=== PATIENT | female | born 2000 | race Caucasian/White ===

== ENCOUNTER 2024-01-09 06:00 | Inpatient (IN) | payer OTHER ==
[2024-01-09] MEDS ORDERED: OXYTOCIN 10 UNIT/ML 1 ML VIAL IM PRN (06:16)
[2024-01-09] MEDS ORDERED: CARBOPROST TROMETHAMINE 250 MCG/ML 1 ML AMP IM PRN (06:16)
[2024-01-09] MEDS ORDERED: TERBUTALINE 1 MG/ML VIAL SQ PRN (06:16)
[2024-01-09] MEDS ORDERED: miSOPROStoL 200 MCG TAB PO PRN (06:16)
[2024-01-09] MEDS ORDERED: LIDOCAINE 0.5% (PF) 5 MG/ML (50 ML SDV) SQ PRN (06:16)
[2024-01-09] MEDS ORDERED: miSOPROStoL 200 MCG TAB RECTAL PRN (06:16)
[2024-01-09] MEDS ORDERED: TRANEXAMIC 1,000 MG/100ML-NACL 1,000 MG in EMPTY BAG 1 BAG IV PRN (06:16)
[2024-01-09] MEDS ORDERED: METHYLERGONOVINE 0.2 MG/ML 1 ML AMP IM PRN (06:16)
[2024-01-09] MEDS: LACTATED RINGERS 1,000 ML IV SCH (06:26)
[2024-01-09] MEDS: OXYTOCIN 30 UNITS/500 ML NS 30 UNIT in SALINE 1 500ML.BAG IV SCH (06:29)
[2024-01-09] MEDS ORDERED: OXYTOCIN 30 UNITS/500 ML NS 30 UNIT in SALINE 1 500ML.BAG IV SCH (06:30)
[2024-01-09 06:43] LABS: Basophils % (A) 0 %; Eosinophils # (A) 0.2 k/uL (0-0.7); Eosinophils % (A) 1 %; HCT 37.6 % (34.0-46.0); HGB 12.3 gm/dL (11.4-16.0); Lymphocytes # (A) 2.5 k/uL (1.0-4.8); Lymphocytes % (A) 22 %; MCH 29.4 pg (25.0-35.0); MCHC 32.7 g/dL (31.0-37.0); MCV 90.2 fL (80.0-100.0); Mean Platelet Volume 8.6; Monocytes # (A) 0.8 k/uL (0-1.0); Monocytes % (A) 7 %; Neutrophils # (A) 7.5 k/uL (1.3-7.7); Neutrophils % (A) 66 %; Platelet Count 287 k/uL (150-450); RBC 4.17 m/uL (3.80-5.40); RDW 14.3 % (11.5-15.5); WBC 11.4 k/uL (3.8-10.6)
--- NOTE | 2024-01-09 08:41 | P.HPOB ---
History of Present Illness H&P Date: 01/09/24 Chief Complaint: 40-6/7 weeks, induction The patient is a 23-year-old 1 para 0 admitted at 40-6/7 weeks as established by 6-week ultrasound. She is admitted for postdates induction of labor with all signs reassuring, category 1 heart rate tracing. Her has been entirely uncomplicated and group B strep status is negative. Obstetrical history: 1 para 0 with current statistics listed in history of present illness. EDC of 01/03/2024 was established by 6-week ultrasound. Laboratory workup demonstrates a blood type of A+ with a negative antibody screen. Rubella status is immune. The remainder of the laboratory workup is within normal limits. 1 hour Glucola was normal and group B strep status is negative. [employer] history: Unremarkable with no history of any infections to include STDs. Review of Systems Review of systems is confined to history of present illness. Past Medical History Past Medical History: No Reported History History of Any Multi-Drug Resistant Organisms: None Reported Past Surgical History: Adenoidectomy, Tonsillectomy Past Anesthesia/Blood Transfusion Reactions: No Reported Reaction Past Psychological History: Anxiety Additional Psychological History / Comment(s): not currently medicated Smoking Status: Never smoker Past Alcohol Use History: None Reported Past Drug Use History: None Reported - Past Family History Mother Family Medical History: Thyroid Disorder Additional Family Medical History / Comment(s): congenital "holes in heart" with mesh repair Medications and Allergies Home Medications Medication Instructions Recorded Confirmed Type Loratadine [Claritin] 10 mg PO DAILY 01/09/24 01/09/24 History Vit No.179/Iron/Folic 1 each PO DAILY 01/09/24 01/09/24 History [ Tablet] Allergies Allergy/AdvReac Type Severity Reaction Status Date / Time human papillomavirus Allergy Intermediate Rash/Hives Verified 01/09/24 06:16 vaccine, quadr Exam Vital Signs Temp Pulse Resp BP Pulse Ox 01/09/24 06:18 97.3 F L 100 18 135/93 99 Intake and Output 01/08/24 01/09/24 01/09/24 22:59 06:59 14:59 Other: Weight 78.471 kg In general, this is a well-developed, well-nourished white female in no acute distress. Her heart has a regular rhythm and rate without murmur. Her lungs are clear to auscultation bilateral in all sánchez. Her abdomen is gravid, nondistended, has normal active bowel sounds, soft, nontender, and without any palpable masses aside from the uterine fundus. Her extremities are without any cyanosis, clubbing, or edema and are nontender to palpation bilaterally. Digital cervical examination demonstrates her cervix to be 2 cm dilated, 50% effaced, with the vertex and presentation at -2 station. Artificial rupture of membranes is carried out demonstrating clear fluid. Results Result Diagrams: 01/09/24 06:30 Abnormal Lab Results - Last 24 Hours (Table) 01/09/24 Range/Units 06:30 WBC 11.4 H (3.8-10.6) k/uL Assessment and Plan (1) Post-dates Current Visit: Yes Status: Acute Code(s): O48.0 - POST-TERM SNOMED Code(s): 82739440 Plan: The patient is admitted for postdates induction of labor. Pitocin has been started and she has undergone artificial rupture of membranes. She will have close maternal and surveillance and expectant management will be practiced. She is a good candidate for either IV or epidural analgesia, whichev er she may choose.
[2024-01-09] MEDS ORDERED: NALBUPHINE 10 MG/ML (10 ML MDV) IV PRN (08:42)
[2024-01-09] MEDS ORDERED: SODIUM CHLORIDE 0.9% 250 ML BAG ONE (13:21)
[2024-01-09] MEDS ORDERED: ROPIVACAINE 5 MG/ML 30 ML VIAL ONE (13:21)
[2024-01-09] MEDS ORDERED: fentaNYL (PF) 50 MCG/ML 5 ML AMP ONE (13:21)
[2024-01-09] MEDS ORDERED: ZOLPIDEM 5 MG TAB PO PRN (21:44)
[2024-01-09] MEDS ORDERED: SIMETHICONE 80 MG CHEWABLE PO PRN (21:44)
[2024-01-09] MEDS ORDERED: diphenhydrAMINE 25 MG CAP PO PRN (21:44)
[2024-01-09] MEDS ORDERED: diphenhydrAMINE 50 MG/ML 1 ML VIAL IVP PRN ×2 (21:44)
[2024-01-09] MEDS ORDERED: BENZOCAINE/MENTHOL SPRAY 1 GM/SPRAY AEROSOL TOPICAL PRN (21:44)
[2024-01-09] MEDS ORDERED: HYDROCORTISONE 2.5% RECTAL CREAM 30 GM TUBE RECTAL PRN (21:44)
[2024-01-09] MEDS ORDERED: diphenhydrAMINE 50 MG CAP PO PRN (21:44)
[2024-01-09] MEDS ORDERED: LANOLIN CREAM 1 GM TUBE TOPICAL PRN (21:44)
--- NOTE | 2024-01-09 21:49 | P.PROBDLV ---
Vaginal Delivery Note - . Vaginal Delivery Note: The patient is a 23-year-old 1 para 0 admitted at 40-6/7 weeks by good dating parameters. She is admitted for postdates induction of labor with all signs reassuring, category 1 heart rate tracing. Her has been entirely uncomplicated and group B strep status is negative. On labor and delivery, she had Pitocin augmentation started and underwent artificial rupture of membranes with minimal fluid returned what was returned appeared to be clear. She made fairly slow progress through the latent phase of labor and had an epidural catheter placed around 4 cm of dilation. She then began to make fairly steady progress through the active phase of labor and ultimately progressed to complete and 0 station. She pushed over the course of approximately 50 minutes to a normal spontaneous vaginal delivery of a viable 6 pound 5 ounce baby girl with Apgars of 3 at 1 minute, 5 at 5 minutes, and 7 at 10 minutes. There was a moderate to significant amount of thick meconium stained fluid behind the baby and there was a nuchal cord x 1 which was reduced after delivery of the . Thorough suction of the oropharynx and nose was carried out on the perineum prior to delivery and after delivery and well prior to the infant taking his first deep breath. The placenta delivered spontaneously, intact, and was grossly normal though significantly meconium stained. There was a grossly normal, centrally inserted three-vessel cord. There were no lacerations of the perineum, vagina, or cervix. All sponge, instrument, and needle counts were correct. Estimated blood loss was approximately 100 mL. Both mother and are resting comfortably though the has been taken to the special care nursery for poor respiratory effort and is shortly to be placed on high flow oxygen supplementation.
[2024-01-09 23:19] VITALS: RESP 16
[2024-01-10 06:34] LABS: Basophils % (A) 0 %; Eosinophils # (A) 0.1 k/uL (0-0.7); Eosinophils % (A) 0 %; HCT 34.4 % (34.0-46.0); HGB 10.9 gm/dL (11.4-16.0); Hypochromasia Slight; Lymphocytes # (A) 1.9 k/uL (1.0-4.8); Lymphocytes % (A) 11 %; MCH 28.9 pg (25.0-35.0); MCHC 31.7 g/dL (31.0-37.0); MCV 91.1 fL (80.0-100.0); Mean Platelet Volume 8.6; Monocytes # (A) 0.9 k/uL (0-1.0); Monocytes % (A) 5 %; Neutrophils # (A) 13.4 k/uL (1.3-7.7); Neutrophils % (A) 80 %; Platelet Count 253 k/uL (150-450); RBC 3.78 m/uL (3.80-5.40); RDW 14.6 % (11.5-15.5); WBC 16.7 k/uL (3.8-10.6)
--- NOTE | 2024-01-10 08:44 | P.PNOBGVD ---
Subjective - Subjective Patient reports: Reports appetite normal, Reports voiding normally, Reports pain well controlled, Reports ambulating normally : doing well, in NICU (On high flow oxygen.) Objective - Latest Vital Signs Latest vital signs: Vital Signs Temp Pulse Resp BP 01/10/24 08:00 98.1 F 88 16 115/76 01/10/24 04:00 98.0 F 93 16 112/70 01/10/24 00:49 98.3 F 91 16 130/88 01/09/24 23:40 86 16 132/78 01/09/24 23:25 91 16 127/78 01/09/24 23:10 90 16 142/78 01/09/24 22:55 74 16 139/77 01/09/24 22:40 77 16 127/71 01/09/24 22:25 82 16 137/69 01/09/24 22:10 100 16 138/63 01/09/24 21:55 101 H 16 141/82 01/09/24 21:40 98.0 F 105 H 16 142/80 Intake and Output 01/09/24 01/10/24 01/10/24 22:59 06:59 14:59 Output Total 100 83 Balance -100 -83 Output: Output, Quantitative 100 83 Blood Loss Other: # Voids 1 1 - Exam Extremities: Present: normal Abdomen: Present: normal appearance, soft Uterus: Present: normal, firm (Uterine fundus is tonic and nontender below the umbilicus.) - Labs Labs: Abnormal Lab Results - Last 24 Hours (Table) 01/10/24 Range/Units 06:30 WBC 16.7 H (3.8-10.6) k/uL RBC 3.78 L (3.80-5.40) m/uL Hgb 10.9 L (11.4-16.0) gm/dL Neutrophils # 13.4 H (1.3-7.7) k/uL Assessment and Plan (1) Post-dates Current Visit: Yes Status: Acute Code(s): O48.0 - POST-TERM SNOMED Code(s): 73053059 (2) Normal spontaneous vaginal delivery Current Visit: Yes Status: Acute Code(s): O80 - ENCOUNTER FOR FULL-TERM UNCOMPLICATED DELIVERY SNOMED Code(s): 74402011 Plan: Continue routine care. I would anticipate discharge home tomorrow pending no complications. I have encouraged the patient to continue to ambulate in the hallways.
[2024-01-10] MEDS: ACETAMINOPHEN TAB 500 MG TAB PO PRN (09:18)
[2024-01-10] MEDS: IBUPROFEN 800 MG TAB PO PRN (15:47)
[2024-01-10] MEDS: SENNOSIDES-DOCUSATE SODIUM 1 EACH TAB PO SCH (16:05)
--- NOTE | 2024-01-11 08:41 | P.DS ---
Providers Date of admission: 01/09/24 06:06 Expected date of discharge: 01/11/24 Attending physician: Shayan Inman Primary care physician: Stated None - Discharge Diagnosis(es) (1) Post-dates Current Visit: Yes Status: Acute (2) Normal spontaneous vaginal delivery Current Visit: Yes Status: Acute Hospital Course: The patient is a 23-year-old 1 para 0 admitted at 40-6/7 weeks by good dating parameters. She is admitted for postdates induction of labor with all signs reassuring, category 1 heart rate tracing. Her was uncomplicated and group B strep status is negative. On labor delivery, she had Pitocin started and underwent artificial rupture of membranes for a very minimal amount of what appeared to be clear fluid. She progressed slowly to the active phase of labor and had an epidural catheter placed for analgesia. She then made steady progress through the active phase of labor to complete and pushed to a normal spontaneous vaginal delivery of a viable 6 pound 5 ounce baby girl with Apgars of 3 at 1 minute, 5 at 5 minutes, and 7 at 10 minutes. There was a moderate to significant amount of thick meconium fluid behind the baby. The patient's course was unremarkable with vital signs remaining stable and her temperature was afebrile throughout. She was deemed stable for discharge on day #2 and was discharged home to follow-up in the office in 6 weeks routinely. Discharge instructions included calling for any significantly increased bleeding or foul-smelling lochia, significantly increased fever or abdominal pain, perineal complaints, breast complaints, or anything else that concerned her. She was additionally instructed to have nothing in the vagina for at least 6 weeks time to include intercourse. She understood her instructions and agrees to follow-up as noted above. The does remain in the special care nursery but has weaned off of supplemental oxygen and should begin to feed today. Maternal blood type is a positive and rubella status is immune. Procedures: #1. Pitocin induction #2. Artificial rupture of membranes #3. Epidural analgesia #4. Normal spontaneous vaginal delivery Patient Condition at Discharge: Stable Plan - Discharge Summary New Discharge Prescriptions: No Action Loratadine [Claritin] 10 mg PO DAILY Vit No.179/Iron/Folic [ Tablet] 1 each PO DAILY Discharge Medication List Loratadine [Claritin] 10 mg PO DAILY 01/09/24 [History] Vit No.179/Iron/Folic [ Tablet] 1 each PO DAILY 01/09/24 [History] Follow up Appointment(s)/Referral(s): Shayan Inman MD [STAFF PHYSICIAN] - 02/20/24 8:45 am Discharge Disposition: HOME SELF-CARE
[2024-01-11 16:45] VITALS: BP 130/82; PULSE 62; TEMP 97.8
== END 2024-01-11 17:00 | disposition home or self-care (01) | DRG 807 ==
LOC: 4FBP 06:06
PROVIDERS: ADMIT Obstetrics & Gynecology; ATTEND Obstetrics & Gynecology
PROC: 10E0XZZ Delivery of Products of Conception, External Approach (ICD-10-PCS; principal; 2024-01-09)
PROC: 3E033VJ Introduction of Other Hormone into Peripheral Vein, Percutaneous Approach (ICD-10-PCS; principal; 2024-01-09)
PROC: 10907ZC Drainage of Amniotic Fluid, Therapeutic from Products of Conception, Via Natural or Artificial Opening (ICD-10-PCS; principal; 2024-01-09)
DX: O48.0 Post-term pregnancy (principal); O99.344 Other mental disorders complicating childbirth; F41.9 Anxiety disorder, unspecified; O77.0 Labor and delivery complicated by meconium in amniotic fluid; O69.81X0 Labor and delivery complicated by cord around neck, without compression, not applicable or unspecified; Z88.7 Allergy status to serum and vaccine; Z79.899 Other long term (current) drug therapy; Z3A.40 40 weeks gestation of pregnancy; Z37.0 Single live birth
CPT/HCPCS: 85025; 86850; 86900; 86901; 88307